=== PATIENT | male | born 2000 | race Two or more races ===

== ENCOUNTER 2021-09-11 12:38 | Emergency (ER) | payer OTHER ==
[~2021-09-11] VITALS: Ht 167.6 cm; Wt 70.3 kg
[2021-09-11] MEDS ORDERED: KETO10TA2 PO (14:16)
== END 2021-09-11 14:53 | disposition home or self-care (01) ==
LOC: ER 12:38
DX: S99.922A Unspecified injury of left foot, initial encounter (principal); Y93.79 Activity, other specified sports and athletics; Y93.75 Activity, martial arts; Y92.89 Other specified places as the place of occurrence of the external cause; Y99.8 Other external cause status

== ENCOUNTER 2022-04-12 13:14 | Outpatient (CLI) | payer OTHER ==
[~2022-04-12 13:14] MED LIST: KETO10TA2 PO
== END 2022-04-12 13:26 | disposition home or self-care (01) ==
LOC: RAD 13:14
PROVIDERS: ATTEND Podiatrist Foot Surgery
DX: S92.402A Displaced unspecified fracture of left great toe, initial encounter for closed fracture (principal)

== ENCOUNTER 2023-06-10 15:04 | Emergency (ER) | payer OTHER ==
[~2023-06-10] VITALS: Ht 167.6 cm; Wt 76.2 kg
== END 2023-06-10 21:57 | disposition home or self-care (01) ==
LOC: ER 15:04
DX: J02.8 Acute pharyngitis due to other specified organisms (principal); B96.89 Other specified bacterial agents as the cause of diseases classified elsewhere